=== PATIENT | female | born 1995 | race Two or more races ===

== ENCOUNTER 2018-07-28 23:29 | Emergency (ER) | payer OTHER ==
[~2018-07-28] VITALS: Ht 160 cm; Wt 46.3 kg
[2018-07-29] MEDS ORDERED: CEPHALEXIN500 MG PO (05:10)
== END 2018-07-29 05:14 | disposition home or self-care (01) ==
LOC: ER 23:29
DX: O26.892 Other specified pregnancy related conditions, second trimester (principal); R10.2 Pelvic and perineal pain; Z34.02 Encounter for supervision of normal first pregnancy, second trimester